=== PATIENT | male | born 1945 | race Caucasian/White ===

== ENCOUNTER 2016-04-07 08:58 | Outpatient (CLI) | payer MEDICARE, BC ==
[2016-04-07 09:43] LABS: ALT (SGPT) 16 U/L (0-55); AST (SGOT) 15 U/L (5-34); Alkaline Phosphatase 57 U/L (40-150); Anion Gap 11 mmol/L (10-20); BUN (Urea Nitrogen) 19 mg/dL (8.4-25.7); Bilirubin, Total 0.3 mg/dL (0.2-1.2); Calc. Creatinine Clearance 0 mL/min (70-130); Calcium 9.5 mg/dL (7.8-10.44); Carbon Dioxide 26 mmol/L (23-31); Chloride 107 mmol/L (98-107); Estimated GFR-MDRD 67; Globulin 3.9 g/dL (2.4-3.5); LDL Cholesterol, Calculated 68 mg/dL; Protein, Total 8.1 g/dL (5.8-8.1)
== END 2016-04-07 08:59 | disposition home or self-care (01) ==
LOC: BURLAB 08:58
PROVIDERS: ATTEND Internal Medicine Cardiovascular Disease
DX: E78.00 Pure hypercholesterolemia, unspecified (principal); Z79.899 Other long term (current) drug therapy
CPT/HCPCS: 36415; 80053; 80061

== ENCOUNTER 2016-08-27 14:15 | Outpatient (CLI) | payer MEDICARE, BC ==
--- NOTE | 2016-08-27 15:25 | RAD ---
LUMBAR SPINE FOUR VIEWS WITH BENDING: Date: 08-27-16 Comparison: 08-07-16 done at [facility] [place]. FINDINGS: There is about an 8 mm retrolisthesis of L3 on L4. Differences between flexion and extension are min imal. ON the flexion view it decreases slightly to just over 6 mm. Minimal retrolisthesis of L2 on L 3 does not appear to change. Degenerative changes are seen as usual in the spine. There are no new f indings since the prior exam. Mild scoliosis convex right is seen as usual, as well as diffuse degen erative changes in a calcified aorta. The pedicle screws at L3 through L5 remain in place and are no different in appearance than previous ly. IMPRESSION: No changes since 08-07-16. The most prominent retrolisthesis of L3 on L4 varies at most by less than 2 mm between flexion and extension. POS: HOME
== END 2016-08-27 14:16 | disposition home or self-care (01) ==
LOC: BURRAD 14:15
PROVIDERS: ATTEND Family Medicine
DX: M47.817 Spondylosis without myelopathy or radiculopathy, lumbosacral region (principal); M43.16 Spondylolisthesis, lumbar region
CPT/HCPCS: 72120

== ENCOUNTER → 2018-03-15 | Emergency (ER) | payer MEDICARE, BC ==
--- NOTE | 2018-03-15 22:05 | RAD ---
CHEST TWO VIEWS: 03/15/18 Comparison is made with a 10/04/14 study. The lungs are mildly hyperexpanded but clear. No major lobar infiltrate or effusion was seen. A prior CABG is noted. The heart size is normal. Mild degenerative changes are seen in the spine. IMPRESSION: No acute thoracic finding. POS: HOME
== END ==
LOC: BURERS 16:09
DX: J06.9 Acute upper respiratory infection, unspecified (principal); J30.9 Allergic rhinitis, unspecified; J44.9 Chronic obstructive pulmonary disease, unspecified; I25.2 Old myocardial infarction; I25.10 Atherosclerotic heart disease of native coronary artery without angina pectoris; F17.210 Nicotine dependence, cigarettes, uncomplicated; Z79.899 Other long term (current) drug therapy
CPT/HCPCS: 71046

== ENCOUNTER 2018-11-24 14:44 | Outpatient (CLI) | payer MEDICARE, BC ==
--- NOTE | 2018-11-24 20:48 | RAD ---
LEFT FOOT THREE VIEWS: 11/24/18 No fracture or periosteal reaction was seen. All bones appeared intact. Some of the IP joints of the toes seems slightly narrowed which could be due to mild arthritic change. The remainder of the foot w as unremarkable. Note: There was a little increased density of the talus but I believe it is just overlapping structur es. Ankle films would show it better. POS: HOME
== END 2018-11-24 14:45 | disposition home or self-care (01) ==
LOC: BURRAD 14:44
PROVIDERS: ATTEND Podiatrist Foot & Ankle Surgery
DX: M20.22 Hallux rigidus, left foot (principal); M79.672 Pain in left foot

== ENCOUNTER 2019-01-20 09:47 | Outpatient (CLI) | payer MEDICARE, BC ==
[2019-01-20 17:00] LABS: #Eosinphils 0.1 thou/uL (0.0-0.7); #Lymphocytes 3.2 thou/uL (1.20-3.40); #Neutrophils 5.4 thou/uL (1.40-6.50); %Basophils 0.5 % (0.0-1.0); %Eosinophils 0.9 % (0.0-10.0); %Lymphocytes 32.6 % (21.0-51.0); %Monocytes 10.5 % (0.0-10.0); %Neutrophils 55.5 % (42.0-75.0); Hemoglobin 10.9 g/dL (14.0-18.0); Mean Corpuscular HGB CONC 32.3 g/dL (32.0-36.0); Mean Corpuscular Hemoglobin 27.7 pg (27.0-31.0); Mean Corpuscular Volume 85.8 fL (78.0-98.0); Mean Platelet Volume 7.5 fL (7.4-10.4); Platelet Count 245 thou/uL (130-400); RBC Distribution Width 14.5 % (11.5-14.5); Red Blood Cell (RBC) Count 3.91 mill/uL (4.70-6.10); White Blood Cell (WBC) Count 9.7 thou/uL (4.8-10.8)
[2019-01-20 17:36] LABS: ALT (SGPT) 8 U/L (8-55); AST (SGOT) 13 U/L (5-34); Albumin 3.7 g/dL (3.4-4.8); Alkaline Phosphatase 77 U/L (40-110); Anion Gap 13 mmol/L (10-20); BUN (Urea Nitrogen) 19 mg/dL (8.4-25.7); Bilirubin, Total 0.2 mg/dL (0.2-1.2); Calc. Creatinine Clearance 0 mL/min (70-130); Calcium 8.9 mg/dL (7.8-10.44); Carbon Dioxide 23 mmol/L (23-31); Chloride 98 mmol/L (98-107); Estimated GFR-MDRD 81; Globulin 3.1 g/dL (2.4-3.5); Glucose 100 mg/dL (83-110); Potassium 4.7 mmol/L (3.5-5.1); Protein, Total 6.8 g/dL (5.8-8.1); Sodium 129 mmol/L (136-145)
== END 2019-01-20 09:48 | disposition home or self-care (01) ==
LOC: BUREKG 09:47
PROVIDERS: ATTEND Surgery
DX: Z01.818 Encounter for other preprocedural examination (principal); G89.4 Chronic pain syndrome; M96.1 Postlaminectomy syndrome, not elsewhere classified; M54.16 Radiculopathy, lumbar region
CPT/HCPCS: 36415; 80053; 85025; 93005; 93010

== ENCOUNTER 2021-06-19 22:43 | Emergency (ER) | payer MEDICARE, BC ==
[2021-06-19] MEDS ORDERED: Fentanyl 100 MCG/2 ML VIAL ONE (23:11)
[2021-06-20] MEDS ORDERED: Fentanyl 100 MCG/2 ML VIAL ONE (00:24)
== END 2021-06-20 01:26 | disposition home or self-care (01) ==
LOC: BURERS 22:43
DX: S13.9XXA Sprain of joints and ligaments of unspecified parts of neck, initial encounter (principal); S30.0XXA Contusion of lower back and pelvis, initial encounter; S70.01XA Contusion of right hip, initial encounter; S20.229A Contusion of unspecified back wall of thorax, initial encounter; I10 Essential (primary) hypertension; I25.10 Atherosclerotic heart disease of native coronary artery without angina pectoris; J44.9 Chronic obstructive pulmonary disease, unspecified; F17.210 Nicotine dependence, cigarettes, uncomplicated; W18.30XA Fall on same level, unspecified, initial encounter
CPT/HCPCS: 72125; 72128; 72131; 96374; 96376; J3010

== ENCOUNTER 2021-10-24 02:02 | Emergency (ER) | payer OTHER, MEDICARE, BC ==
[2021-10-24] MEDS ORDERED: Morphine 4 MG/ML VIAL ONE (02:47)
[2021-10-24] MEDS ORDERED: Ondansetron PF 4 MG/2 ML Vial ONE (02:47)
[2021-10-24 02:50] LABS: #Basophils 0.1 thou/uL (0.0-0.2); #Eosinphils 0.1 thou/uL (0.0-0.7); #Lymphocytes 2.3 thou/uL (1.20-3.40); #Monocytes 0.7 thou/uL (0.11-0.59); #Neutrophils 5.5 thou/uL (1.40-6.50); %Eosinophils 0.7 % (0.0-10.0); %Lymphocytes 26.2 % (21.0-51.0); %Monocytes 8.5 % (0.0-10.0); %Neutrophils 63.5 % (42.0-75.0); Hemoglobin 11.9 g/dL (14.0-18.0); Mean Corpuscular HGB CONC 32.7 g/dL (32.0-36.0); Mean Platelet Volume 6.9 fL (7.4-10.4); Platelet Count 173 thou/uL (130-400); RBC Distribution Width 13.7 % (11.5-14.5); White Blood Cell (WBC) Count 8.6 thou/uL (4.8-10.8)
[2021-10-24 02:57] LABS: Prothrombin Time 13.1 sec (12.0-14.7)
[2021-10-24 03:05] LABS: ALT (SGPT) 10 U/L (8-55); AST (SGOT) 17 U/L (5-34); Albumin 3.4 g/dL (3.4-4.8); Alkaline Phosphatase 55 U/L (40-110); Anion Gap 13 mmol/L (10-20); BUN (Urea Nitrogen) 23 mg/dL (8.4-25.7); Bilirubin, Total 0.2 mg/dL (0.2-1.2); Calc. Creatinine Clearance 0 mL/min (70-130); Calcium 8.7 mg/dL (7.8-10.44); Carbon Dioxide 24 mmol/L (23-31); Chloride 102 mmol/L (98-107); Estimated GFR 90; Globulin 3.1 g/dL (2.4-3.5); Glucose 80 mg/dL (83-110); Protein, Total 6.5 g/dL (5.8-8.1); Sodium 134 mmol/L (136-145)
[2021-10-24 03:32] LABS: Bilirubin Negative (Negative); Blood, Urine Negative (Negative); Clarity Clear (Clear); Glucose, Urine (Dipstick) Negative (Negative); Ketone, Urine Negative (Negative); Leukocyte Negative (Negative); Nitrite Negative (Negative); Protein, Urine (Dipstick) Negative (Neg-Trace); Specific Gravity, Urine 1.015 (1.005-1.030); Urobilinogen 0.2 mg/dL (Less than 2)
== END 2021-10-24 06:10 | disposition home or self-care (01) ==
LOC: BURERS 02:02
DX: R51.9 Headache, unspecified (principal); M54.50 Low back pain, unspecified; M54.6 Pain in thoracic spine; R42 Dizziness and giddiness; R29.700 NIHSS score 0; W19.XXXA Unspecified fall, initial encounter
CPT/HCPCS: 70450; 71250; 72125; 72128; 72131; 74177; 80053; 81003; 84484; 85025; 85610; 93005; 96374; 96375; J2270; J2405

== ENCOUNTER 2022-03-28 12:18 | Emergency (ER) | payer MEDICARE, BC ==
[2022-03-28] MEDS ORDERED: Morphine 4 MG/ML VIAL ONE (12:53)
[2022-03-28 12:59] LABS: Hemoglobin 15.2 g/dL (14.0-18.0); Mean Corpuscular HGB CONC 33.6 g/dL (32.0-36.0); Platelet Count 162 10x3/uL (130-400); RBC Distribution Width 13.7 % (11.5-14.5); Red Blood Cell (RBC) Count 4.36 mill/uL (4.70-6.10); White Blood Cell (WBC) Count 9.8 10x3/uL (4.8-10.8)
[2022-03-28 13:09] LABS: #Lymphocytes 1.3 thou/uL (1.20-3.40); #Monocytes 0.7 thou/uL (0.11-0.59); #Neutrophils 7.8 thou/uL (1.40-6.50); %Basophils 0.5 % (0.0-1.0); %Eosinophils 0.3 % (0.0-10.0); %Lymphocytes 13.2 % (21.0-51.0); %Neutrophils 79.1 % (42.0-75.0)
[2022-03-28 13:10] LABS: MDiff Complete? YES; Platelet Morphology Comment Appears Adequate; RBC Morphology Normal
[2022-03-28 13:16] LABS: ALT (SGPT) 19 U/L (8-55); AST (SGOT) 19 U/L (5-34); Albumin 4.1 g/dL (3.4-4.8); Alkaline Phosphatase 64 U/L (40-110); Anion Gap 14 mmol/L (10-20); BUN (Urea Nitrogen) 25 mg/dL (8.4-25.7); Bilirubin, Total 0.3 mg/dL (0.2-1.2); Calc. Creatinine Clearance 0 mL/min (70-130); Calcium 9.3 mg/dL (7.8-10.44); Carbon Dioxide 21 mmol/L (23-31); Chloride 102 mmol/L (98-107); Estimated GFR 76; Globulin 3.5 g/dL (2.4-3.5); Glucose 113 mg/dL (83-110); Potassium 4.3 mmol/L (3.5-5.1); Protein, Total 7.6 g/dL (5.8-8.1); Sodium 133 mmol/L (136-145)
[2022-03-28 13:26] LABS: Bilirubin Negative (Negative); Blood, Urine Negative (Negative); Clarity Clear (Clear); Glucose, Urine (Dipstick) Negative (Negative); Ketone, Urine Trace mg/dL (Negative); Leukocyte Negative (Negative); Nitrite Negative (Negative); Protein, Urine (Dipstick) Negative (Neg-Trace); Urobilinogen 0.2 mg/dL (Less than 2)
[2022-03-28] MEDS ORDERED: Morphine 2 MG/ML VIAL ONE (14:44)
== END 2022-03-28 15:11 | disposition home or self-care (01) ==
LOC: BURERS 12:18
DX: S62.323A Displaced fracture of shaft of third metacarpal bone, left hand, initial encounter for closed fracture (principal); S62.325A Displaced fracture of shaft of fourth metacarpal bone, left hand, initial encounter for closed fracture; S62.327A Displaced fracture of shaft of fifth metacarpal bone, left hand, initial encounter for closed fracture; S51.011A Laceration without foreign body of right elbow, initial encounter; S51.012A Laceration without foreign body of left elbow, initial encounter; J44.9 Chronic obstructive pulmonary disease, unspecified; I10 Essential (primary) hypertension; I25.10 Atherosclerotic heart disease of native coronary artery without angina pectoris; F17.210 Nicotine dependence, cigarettes, uncomplicated; Z79.899 Other long term (current) drug therapy; W19.XXXA Unspecified fall, initial encounter
CPT/HCPCS: 71045; 73130; 80053; 81003; 83880; 84484; 85025; 93005; J2270; 29125

== ENCOUNTER 2022-05-19 16:26 | Outpatient (CLI) | payer MEDICARE, BC | END 2022-05-19 16:27 | disposition home or self-care (01) | LOC: BURRAD 16:26 | PROVIDERS: ATTEND Family Medicine | DX: R63.4 Abnormal weight loss (principal); J43.9 Emphysema, unspecified; J98.11 Atelectasis | CPT/HCPCS: 71046 ==

== ENCOUNTER 2024-02-17 18:25 | Emergency (ER) | payer MEDICARE, BC ==
[~2024-02-17 18:25] MED LIST: Iopamidol 370 76% 100 ML VIAL ONE
[2024-02-17 19:37] LABS: #Basophils 0.1 thou/uL (0.0-0.2); #Lymphocytes 1.3 thou/uL (1.20-3.40); #Monocytes 0.6 thou/uL (0.11-0.59); #Neutrophils 6.2 thou/uL (1.40-6.50); %Basophils 1.1 % (0.0-1.0); %Eosinophils 0.3 % (0.0-10.0); %Lymphocytes 15.3 % (21.0-51.0); %Monocytes 6.9 % (0.0-10.0); %Neutrophils 76.5 % (42.0-75.0); Hematocrit 46.3 % (42.0-52.0); Hemoglobin 15.1 g/dL (14.0-18.0); Mean Corpuscular HGB CONC 32.7 g/dL (32.0-36.0); Mean Corpuscular Hemoglobin 33.4 pg (27.0-31.0); Mean Platelet Volume 7.3 fL (7.4-10.4); Platelet Count 137 10x3/uL (130-400); RBC Distribution Width 14.1 % (11.5-14.5); Red Blood Cell (RBC) Count 4.52 mill/uL (4.70-6.10); White Blood Cell (WBC) Count 8.1 10x3/uL (4.8-10.8)
[2024-02-17 19:52] LABS: Bilirubin Negative (Negative); Blood, Urine Negative (Negative); Clarity Clear (Clear); Glucose, Urine (Dipstick) Negative (Negative); Ketone, Urine 15 mg/dL (Negative); Leukocyte Negative (Negative); Nitrite Negative (Negative); Protein, Urine (Dipstick) Negative (Neg-Trace); Urobilinogen 0.2 mg/dL (Less than 2)
[2024-02-17 19:52] LABS: ALT (SGPT) Less than 7 U/L (8-55); AST (SGOT) 16 U/L (5-34); Albumin 4.1 g/dL (3.4-4.8); Alkaline Phosphatase 79 U/L (40-110); Anion Gap 16 mmol/L (10-20); BUN (Urea Nitrogen) 17 mg/dL (8.4-25.7); Bilirubin, Total 0.6 mg/dL (0.2-1.2); Calc. Creatinine Clearance 0 mL/min (70-130); Calcium 9.6 mg/dL (7.8-10.44); Carbon Dioxide 20 mmol/L (23-31); Chloride 93 mmol/L (98-107); Estimated GFR 71; Globulin 3.9 g/dL (2.4-3.5); Glucose 93 mg/dL (83-110); Lipase 33 U/L (8-78); Sodium 125 mmol/L (136-145)
[2024-02-17] MEDS ORDERED: Morphine 4 MG/ML VIAL ONE (20:03)
[2024-02-17 20:20] LABS: CAUTI Indications for Culture Dysuria,urgency,freq; RBC/HPF None Seen HPF (0-3); WBC/HPF 0-3 HPF (0-3)
[2024-02-17 20:21] LABS: Bacteria/HPF 1+ HPF (None Seen); Squamous Epithelial 0-3 HPF (0-3); Urine Culture Reflex No No
== END 2024-02-17 22:35 | disposition home or self-care (01) ==
LOC: BURERS 18:25
DX: R10.9 Unspecified abdominal pain (principal); J44.9 Chronic obstructive pulmonary disease, unspecified; I25.2 Old myocardial infarction; I10 Essential (primary) hypertension; I25.10 Atherosclerotic heart disease of native coronary artery without angina pectoris; F17.210 Nicotine dependence, cigarettes, uncomplicated; Z79.899 Other long term (current) drug therapy
CPT/HCPCS: 74177; 80053; 81001; 83605; 83690; 85025; J2272; Q9967; 96374

== ENCOUNTER 2024-08-15 14:26 | Outpatient (CLI) | payer MEDICARE, BC | END 2024-08-15 14:27 | disposition home or self-care (01) | LOC: BURCT 14:26 | PROVIDERS: ATTEND Specialist | DX: M48.062 Spinal stenosis, lumbar region with neurogenic claudication (principal); M46.1 Sacroiliitis, not elsewhere classified; N32.89 Other specified disorders of bladder; M47.816 Spondylosis without myelopathy or radiculopathy, lumbar region; I70.90 Unspecified atherosclerosis; Z98.890 Other specified postprocedural states | CPT/HCPCS: 72131; 72192 ==

== ENCOUNTER 2025-01-19 15:14 | Emergency (ER) | payer MEDICARE, BC ==
[2025-01-19 16:03] LABS: Hematocrit 33.3 % (42.0-52.0); Hemoglobin 12.2 g/dL (14.0-18.0); Mean Corpuscular Hemoglobin 34.5 pg (27.0-31.0); Mean Corpuscular Volume 94.0 fl (78.0-98.0); Platelet Count 133 10x3/uL (130-400); Red Blood Cell (RBC) Count 3.54 mill/uL (4.70-6.10); White Blood Cell (WBC) Count 5.2 10x3/uL (4.8-10.8)
[2025-01-19 16:17] LABS: ALT (SGPT) Less than 4 U/L (Less than 45); AST (SGOT) 18 U/L (11-34); Albumin 3.7 g/dL (3.1-4.5); Alkaline Phosphatase 68 U/L (40-110); Anion Gap 16 mmol/L (10-20); BUN (Urea Nitrogen) 28 mg/dL (8.4-25.7); Bilirubin, Total 0.3 mg/dL (0.3-1.2); Calc. Creatinine Clearance 0 mL/min (70-130); Calcium 8.9 mg/dL (7.8-10.44); Carbon Dioxide 22 mmol/L (23-31); Chloride 101 mmol/L (98-107); Globulin 3.8 g/dL (2.4-3.5); Glucose 97 mg/dL (83-110); Magnesium 1.8 mg/dL (1.6-2.6); Potassium 4.8 mmol/L (3.5-5.1); Sodium 134 mmol/L (136-145); Troponin I 0.040 ng/mL (< 0.028)
[2025-01-19 16:23] LABS: MDiff Complete? YES
[2025-01-19] MEDS ORDERED: Aspirin Chewable 81 MG TAB ONE (16:48)
== END 2025-01-19 17:58 | disposition home or self-care (01) ==
LOC: BURERS 15:14
DX: G20.A1 Parkinson's disease without dyskinesia, without mention of fluctuations (principal); R07.9 Chest pain, unspecified; M54.9 Dorsalgia, unspecified; G89.29 Other chronic pain; J44.9 Chronic obstructive pulmonary disease, unspecified; I10 Essential (primary) hypertension; I25.10 Atherosclerotic heart disease of native coronary artery without angina pectoris; F17.210 Nicotine dependence, cigarettes, uncomplicated
CPT/HCPCS: 36415; 71046; 80053; 83735; 83880; 84484; 85025; 85379; 93005

== ENCOUNTER 2025-01-25 00:45 | Emergency (ER) | payer MEDICARE, BC ==
[2025-01-25 01:13] LABS: INR-International Normal Ratio 1.1; Prothrombin Time 14.5 sec (12.0-14.7)
[2025-01-25 01:15] LABS: #Basophils 0.0 thou/uL (0.0-0.2); #Eosinophils 0.0 thou/uL (0.0-0.7); #Lymphocytes 2.6 thou/uL (1.20-3.40); #Monocytes 0.0 thou/uL (0.11-0.59); #Neutrophils 5.4 thou/uL (1.40-6.50); %Basophils 0.0 % (0.0-1.0); %Eosinophils 0.0 % (0.0-10.0); %Lymphocytes 31.9 % (21.0-51.0); %Monocytes 0.1 % (0.0-10.0); %Neutrophils 68.0 % (42.0-75.0); Hematocrit 34.4 % (42.0-52.0); Hemoglobin 12.7 g/dL (14.0-18.0); Mean Corpuscular Hemoglobin 34.6 pg (27.0-31.0); Mean Corpuscular Volume 93.8 fl (78.0-98.0); Platelet Count 144 10x3/uL (130-400); Red Blood Cell (RBC) Count 3.67 mill/uL (4.70-6.10); White Blood Cell (WBC) Count 8.0 10x3/uL (4.8-10.8)
[2025-01-25 01:22] LABS: ALT (SGPT) 20 U/L (Less than 45); AST (SGOT) 69 U/L (11-34); Albumin 3.5 g/dL (3.1-4.5); Alkaline Phosphatase 81 U/L (40-110); Anion Gap 21 mmol/L (10-20); BUN (Urea Nitrogen) 20 mg/dL (8.4-25.7); Bilirubin, Total 0.8 mg/dL (0.3-1.2); CK (CPK) 2078 U/L (30-200); Calc. Creatinine Clearance 0 mL/min (70-130); Calcium 9.8 mg/dL (7.8-10.44); Carbon Dioxide 18 mmol/L (23-31); Chloride 103 mmol/L (98-107); Globulin 4.2 g/dL (2.4-3.5); Glucose 110 mg/dL (83-110); Potassium 4.0 mmol/L (3.5-5.1); Sodium 138 mmol/L (136-145)
[2025-01-25 01:33] LABS: Troponin I 0.203 ng/mL (< 0.028)
[2025-01-25] MEDS ORDERED: Aspirin Chewable 81 MG TAB ONE (01:47)
[2025-01-25] MEDS ORDERED: Nitroglycerin 0.4 MG TAB 1 EACH ONE (01:47)
[2025-01-25] MEDS ORDERED: Nitroglycerin 2% Ointment 1 INCH/1 GM Packet ONE (01:48)
[2025-01-25] MEDS ORDERED: Enoxaparin 30 MG (0.3 mL) SYRINGE ONE (01:48)
[2025-01-25 01:51] LABS: Glucose, Urine (Dipstick) Negative (Negative); Leukocyte Negative (Negative); Protein, Urine (Dipstick) 100 mg/dL (Neg-Trace); Specific Gravity, Urine 1.020 (1.005-1.030)
[2025-01-25 02:01] LABS: Bacteria/HPF 1+ HPF (None Seen); CAUTI Indications for Culture Alt mental st,lethar; RBC/HPF 0-3 HPF (0-3); WBC/HPF 0-3 HPF (0-3)
[2025-01-25 02:02] LABS: Urine Culture Reflex No No
== END 2025-01-25 03:14 | disposition short-term general hospital (02) ==
LOC: BURERS 00:45
DX: S09.90XA Unspecified injury of head, initial encounter (principal); I21.4 Non-ST elevation (NSTEMI) myocardial infarction; J44.9 Chronic obstructive pulmonary disease, unspecified; I25.2 Old myocardial infarction; I10 Essential (primary) hypertension; I25.10 Atherosclerotic heart disease of native coronary artery without angina pectoris; F17.210 Nicotine dependence, cigarettes, uncomplicated; Z79.51 Long term (current) use of inhaled steroids; Z79.899 Other long term (current) drug therapy; Z79.02 Long term (current) use of antithrombotics/antiplatelets; W19.XXXA Unspecified fall, initial encounter
CPT/HCPCS: 70450; 72125; 80053; 81001; 82550; 84484; 85025; 85610; 93005; 96372; G0390; J1650